=== PATIENT | male | born 1955 | race Caucasian/White ===

== ENCOUNTER → 2018-05-06 | Outpatient (CLI) | payer OTHER ==
--- NOTE | 2018-05-06 16:06 | RADIOLOGY IMAGING REPORT ---
FACILITY: [facility] PATIENT NAME: Nicky Greenberg : 1955 MR: [id number] V: [id number] EXAM DATE: ORDERING PHYSICIAN: NICKY TORRES TECHNOLOGIST: Location: [facility] Patient: Nicky Greenberg : 1955 Visit/Account:[id number] Date of Sevice: 05/06/2018 DEXA Scan Clinical history: Osteoporosis. Comparison: 04/23/2013. LUMBAR SPINE: Bone mineral density (BMD) measured in the lumbar spine correlates with a T-score of -3.3 and a Z-sco re of -2.3 which is osteoporosis as defined by the World Health Organization. Degenerative changes a re present in the lumbar spine which may falsely increase bone density. The corresponding risk of fr acture in the lumbar spine is increased compared with a young adult reference population. Lumbar spi ne bone density has decreased by 1.8% compared to previous. LEFT FEMORAL NECK: Bone mineral density (BMD) measured in the femoral neck correlates with a T-score of -2.1 and a Z-sco re of -0.6 which is osteopenia as defined by the World Health Organization. Bone mineral density (BMD) measured in the femoral neck region is 0.800 g/cm2. LEFT TOTAL HIP: Total hip bone mineral density (BMD) correlates with a T-score of -2.5 and a Z-score of -1.6 which is osteoporosis as defined by the World Health Organization. Total hip bone density has decreased by 1 .7% compared to previous. The corresponding risk of fracture in the hip is increased compared with a young adult reference popu lation. IMPRESSION: 1. Lumbar spine: Osteoporosis. Lumbar spine bone density has decreased by 1.8% compared to previou s. 2. Left femoral neck: Osteopenia. 3. Left femoral neck: Bone Mineral Density is 0.800 g/cm2. 4. Left total hip: Osteoporosis. Total hip bone density has decreased by 1.7% compared to previous . FRAX WHO Fracture Risk Assessment Tool link: <http://www.shef.ac.uk/FRAX/tool.jsp?locationValue=9> PLEASE NOTE: 1) The World Health Organization defines low BMD as follows: T-score Normal > -1 Osteopenia < -1 and > -2.5 Osteoporosis < -2.5 without fractures Established osteoporosis < -2.5 with fractures 2) In general, you may wish to consider: Diagnosis Treatment Follow-up DEXA Normal BMD Prevention 2-3 years Osteopenia Prevention/therapy 1-2 years Osteoporosis Therapy Yearly 3) Fracture risk estimated from the T-score is more accurate for vertebral fractures (often spontane ous) than for hip fractures. Report Dictated By: Kolby Asencio MD at 05/06/2018 3:59 PM Report E-Signed By: Kolby Asencio MD at 05/06/2018 4:02 PM WSN:[id number]
== END ==
LOC: RAD 01:11
PROVIDERS: ATTEND Family Medicine
DX: M81.0 Age-related osteoporosis without current pathological fracture (principal); M85.80 Other specified disorders of bone density and structure, unspecified site
CPT/HCPCS: 77080

== ENCOUNTER 2018-08-12 00:28 | Day surgery (SDC) | payer OTHER ==
[~2018-08-12] VITALS: Ht 180.3 cm; Wt 58.1 kg
[~2018-08-12 00:28] MED LIST: ASCO-182 PO; ASPI81TA86 PO; CALC1TAB32 PO; DEN60I SUBQ; MULT1CAP59 PO
[2018-08-12 06:01] VITALS: BP 108/74
[2018-08-12 08:06] VITALS: BP 83/53
[2018-08-12 08:15] VITALS: BP 78/52
--- NOTE | 2018-08-12 08:17 | Short(Outpt) Discharge Summary ---
Discharge Summary Reason for Hosp/Final Diag: (1) Colon cancer screening Status: Chronic Hospital Course & Plan: Colonoscopy with polypectomy x2 completed without problems. (2) Hemorrhoids Status: Chronic Hospital Course & Plan: Will try fruits/vegetables and metamucil daily and see if these improve. He will schedule a f/u appt with me if he wants to discuss surgical excision. Departure Discharge to: Home, Self Care Discharge Instructions Home Meds Reported Medications Ascorbic Acid (VITAMIN C) 500 Mg Tablet, 1000 MG PO QDAY, TAB 07/29/18 Denosumab (PROLIA) 60 Mg/1 Ml Injs, 60 MG SUBQ q 6 months 07/29/18 Multivitamin (MULTIVITAMINS) 1 Each Capsule, 1 EACH PO, CAPSULE 06/24/18 Calcium Carb & Cit/Vitamin D3 (CALCIUM + D3 ER TABLET) Unknown Strength Tablet.er, PO 06/24/18 Aspirin (ASPIRIN EC) 81 Mg Tablet.dr, 81 MG PO QDAY, TAB 06/12/18 Diet: Regular Activity: As Tolerated Special Instructions: Your colonoscopy was completed without any problems and your prep was excellent (Good Job!!). I removed 2 polyps from your colon and rectum and they were sent to pathology. You still have the hemorrhoids and the small amount of prolapsed rectal mucosa which is the cause of the drainage that you're experiencing. I recommend that you eat a serving of fruit with breakfast and lunch, a serving of vegetables with lunch, and two servings of vegetables with dinner and try a daily fiber supplement such as metamucil or citrucel. If you continue to have problems and wish to discuss surgical excision of the hemorrhoids call my office at [phone] to schedule an appointment to see me to discuss surgery. My office will call you in the next week or two to let you know what the polyps are and when your next colonoscopy should be (likely in 5 years) based on the pathology results. Problem Qualifiers (1) Hemorrhoids: Hemorrhoid type: third degree Qualified Codes: K64.2 - Third degree hemorrhoids NICKY PERDOMO MD Aug 12, 2018 08:17
[2018-08-12 08:30] VITALS: BP 99/79
[2018-08-12 08:32] VITALS: BP 116/77
[2018-08-12 08:34] VITALS: BP 117/79
[2018-08-12] MEDS ORDERED: NORMOSOL R SOLN(*) 1000 ML BAG 1,000 ML IV PRN (11:30)
[2018-08-12] MEDS ORDERED: LIDOCAINE/SOD BICARB 8.4% SYR ID ONE (11:30)
== END 2018-08-12 08:45 | disposition home or self-care (01) ==
LOC: OR 00:28
PROVIDERS: ATTEND Surgery
DX: Z12.11 Encounter for screening for malignant neoplasm of colon (principal); D12.7 Benign neoplasm of rectosigmoid junction; K64.2 Third degree hemorrhoids; K57.30 Diverticulosis of large intestine without perforation or abscess without bleeding
CPT/HCPCS: 88305